=== PATIENT | male | born 1965 ===

== ENCOUNTER 2020-08-30 04:46 | Day surgery (SDC) | payer OTHER ==
[2020-08-29 13:01] VITALS: BMI 24.5
--- NOTE | 2020-08-30 11:39 | HP ---
History & Physical Update - History History: No Change - Physical Physical: No Change - Assessment Assessment: No Change - Plan Plan: No Change
--- NOTE | 2020-08-30 11:41 | OP ---
Operative Note - Note: Operative Date: 08/30/20 Pre-Operative Diagnosis: prostate cancer Operation: prostate cryoablation and cystoscopy Findings: prostate cancer Post-Operative Diagnosis: Same as Pre-op Surgeon: Gonsalo Leung Anesthesiologist/ASSOCIATE PROFESSOR OF BIBLICAL STUDIES: Gissel Monique Anesthesia: General Estimated Blood Loss (mls): 0 Drains & Tubes with Location: 18 fr [address]aga Operative Report Dictated: Yes
[2020-08-30] MEDS ORDERED: PROPOFOL 20 ML ONE ×2 (11:53)
[2020-08-30] MEDS ORDERED: fentaNYL CITRATE 250 MCG/5 ML VIAL ONE (11:53)
[2020-08-30] MEDS ORDERED: MIDAZOLAM HCL 2 MG/2 ML SINGLE DOSE VIAL ONE (11:53)
[2020-08-30] MEDS ORDERED: ceFAZolin SODIUM 1 GM VIAL ONE ×2 (11:57→12:08)
[2020-08-30] MEDS ORDERED: LIDOCAINE HCL/PF 2% SDV 5ML VIAL ONE (11:57)
[2020-08-30] MEDS ORDERED: DEXAMETHASONE SOD PHOSPHATE 4 MG/1 ML VIAL ONE (11:57)
[2020-08-30] MEDS ORDERED: GLYCOPYRROLATE 0.2 MG/1 ML VIAL ONE (11:57)
[2020-08-30] MEDS ORDERED: ceFAZolin SODIUM 1 GM VIAL IVPB ONE (12:05)
[2020-08-30] MEDS ORDERED: BACITRACIN 15 GM TUBE TOPICAL OINTMENT ONE (12:19)
[2020-08-30] MEDS ORDERED: BACITRACIN 15 GM TUBE TOPICAL OINTMENT TP ONE (12:26)
[2020-08-30 14:14] VITALS: TEMP 98.6
[2020-08-30] MEDS ORDERED: oxyCODONE HCL 5 MG TABLET PO ONE ×2 (15:40→16:00)
[2020-08-30] MEDS ORDERED: oxyCODONE HCL 5 MG TABLET ONE (15:40)
[2020-08-30 17:13] VITALS: BP 116/68; PULSE 64
--- NOTE | 2020-08-31 12:05 | OP ---
DATE OF OPERATION: 08/30/2020 PREOPERATIVE DIAGNOSIS: Prostate cancer. POSTOPERATIVE DIAGNOSIS: Prostate cancer. PROCEDURE: Cystoscopy and prostate cryoablation. SURGEON: Gonsalo Franks MD GROUP EXERCISE MANAGER: None. ANESTHESIA: General via laryngeal mask. ANESTHESIOLOGIST: Gissel Monique, REF-HOT PLATE [employer] PRESS FEEDER SPECIMEN: None. CULTURES: None. DRAINS: 18-[place] Gutiérrez catheter. ESTIMATED BLOOD LOSS: Negligible. COMPLICATIONS: None. DESCRIPTION OF PROCEDURE: Patient was brought in the operating room, placed on the operating table in a supine position. After administration of general anesthesia via laryngeal mask, intravenous antibiotics were administered, sequential compression devices were placed. Patient was placed in dorsal lithotomy position. Perineum was shaved first, then the perineum and genitals were prepped and draped in the usual sterile manner. An 18-[place] Gutiérrez catheter was placed per urethra into the bladder, 10 mL was placed in the balloon, then urine was evacuated, then the bladder was filled with 400 mL of sterile normal saline and clamped. Now transrectal ultrasound of the prostate was done, and the plan was devised for prostate cryoablation, whole gland. The 6 probes were then placed in the appropriate locations under ultrasound guidance. Measurements were taken longitudinally, and then probes were set for the appropriate length. The probe temperature sensors were placed in Denonvilliers fascia and external sphincter. Indwelling Gutiérrez catheter was removed. Flexible cystoscopy first was performed, demonstrated no probes had penetrated the prostatic urethra or the bladder. Bladder was thoroughly inspected. There were no foreign bodies, tumors, stones, inflammation. Both ureteral orifices were in their usual location with clear efflux bilaterally. A Super Stiff guidewire was then inserted, cystoscope removed, and the urethral warmer inserted over the guidewire. Guidewire was removed. Urethral warming was started. The positions of the probes were confirmed on ultrasound, and then cryoablation was done with 2 freeze-thaw cycles. At the end of the second thaw, the probes were removed as well as the temperature sensors. Manual pressure on the perineum achieved hemostasis. Urethral warmer was left in place additional 5 minutes. The urethral warmer was removed and 18-[place] Gutiérrez catheter was replaced. Sterile compressive dressing and Bacitracin, Xeroform gauze, and Tegaderm were applied to the perineum. He tolerated the procedure well. Urine drainage was clear at the end of the procedure. GONSALO FRANKS M.D. ANASTACIA/[id number]
== END 2020-08-30 17:14 ==
LOC: JASU-SURG 04:46
PROVIDERS: ATTEND Urology
PROC: 0V503ZZ Destruction of Prostate, Percutaneous Approach (ICD-10-PCS; principal; 2020-08-30 12:00)
DX: C61 Malignant neoplasm of prostate (principal)
CPT/HCPCS: 55873; C2618; 94760